=== PATIENT | male | born 1960 | race African-American/Black ===

== ENCOUNTER 2023-06-26 16:13 | Emergency (ER) | payer SELFPAY ==
[2023-06-26] MEDS ORDERED: Bacitracin 1 PK ONE ×2 (17:39→17:51)
== END 2023-06-26 17:50 | disposition home or self-care (01) ==
LOC: ERS 16:13
DX: L91.0 Hypertrophic scar (principal); F17.210 Nicotine dependence, cigarettes, uncomplicated
CPT/HCPCS: 99282

== ENCOUNTER 2024-11-16 11:04 | Emergency (ER) | payer OTHER ==
[~2024-11-16 11:04] MED LIST: Iopamidol-370 76% 500 ML MDV (1 ML CHARGE) ONE
[2024-11-16 11:56] LABS: #Basophils 0.05 10x3/uL (0.0-0.2); #Eosinophils 0.09 10x3/uL (0.0-0.7); #Monocytes 0.60 10x3/uL (0.11-0.59); #Neutrophils 3.47 10x3/uL (1.40-6.50); %Basophils 0.8 % (0.0-1.0); %Eosinophils 1.4 % (0.0-10.0); %Lymphocytes 33.1 % (21.0-51.0); %Monocytes 9.5 % (0.0-10.0); %Neutrophils 55.0 % (42.0-75.0); Hematocrit 50.3 % (42.0-52.0); Hemoglobin 16.0 g/dL (14.0-18.0); Mean Corpuscular Hemoglobin 29.9 pg (27.0-31.0); Mean Corpuscular Volume 94.0 fL (78.0-98.0); Platelet Count 213 10x3/uL (130-400); Red Blood Cell (RBC) Count 5.35 mill/uL (4.70-6.10); White Blood Cell (WBC) Count 6.31 10x3/uL (4.8-10.8)
[2024-11-16] MEDS ORDERED: Droperidol 5 MG/2 ML VIAL ONE (12:14)
[2024-11-16] MEDS ORDERED: Pantoprazole 40 MG VIAL ONE (12:14)
[2024-11-16 12:21] LABS: Anisocytosis MODERATE=16-30 cells HPF (0-5); Macrocytosis SLIGHT = 6-15 cells HPF (0-5); Ovalocytes SLIGHT = 2-5 cells HPF (0-1); Platelet Adequacy Comment Platelets Normal; Polychromasia SLIGHT = 2-3 cells HPF (0-2); Spherocytes SLIGHT = 1-5 cells HPF (None Seen)
[2024-11-16 13:07] LABS: Bacteria/HPF None Seen HPF (None Seen); CAUTI Indications for Culture Dysuria,urgency,freq; Glucose, Urine (Dipstick) Normal (Negative); Leukocyte Negative Leu/uL (Negative); Protein, Urine (Dipstick) 10 mg/dL (Neg-Trace); RBC/HPF 0-3 HPF (0-3); Specific Gravity, Urine 1.022 (1.002-1.036); WBC/HPF 0-3 HPF (0-3)
[2024-11-16 13:09] LABS: Urine Culture Reflex No No
[2024-11-16 14:09] LABS: INR-International Normal Ratio 1.0; PTT 38.6 sec (22.9-36.1); Prothrombin Time 13.6 sec (12.0-14.7)
[2024-11-16 14:19] LABS: ALT (SGPT) 20 U/L (Less than 45); AST (SGOT) 35 U/L (11-34); Albumin 4.4 g/dL (3.1-4.5); Alkaline Phosphatase 232 U/L (40-110); Anion Gap 16 mmol/L (10-20); BUN (Urea Nitrogen) 12 mg/dL (8.4-25.7); Bilirubin, Total 1.2 mg/dL (0.3-1.2); Calc. Creatinine Clearance 0 mL/min (70-130); Calcium 9.8 mg/dL (7.8-10.44); Carbon Dioxide 27 mmol/L (23-31); Chloride 102 mmol/L (98-107); Globulin 3.8 g/dL (2.4-3.5); Glucose 101 mg/dL (80-115); Lipase 15 U/L (8-78); Potassium 4.2 mmol/L (3.5-5.1); Sodium 141 mmol/L (136-145)
== END 2024-11-16 16:24 | disposition home or self-care (01) ==
LOC: ERS 11:04
DX: R11.2 Nausea with vomiting, unspecified (principal); R10.13 Epigastric pain; T81.321A Disruption or dehiscence of closure of internal operation (surgical) wound of abdominal wall muscle or fascia, initial encounter; F17.210 Nicotine dependence, cigarettes, uncomplicated
CPT/HCPCS: 36415; 74177; 80053; 81001; 83690; 84484; 85025; 85610; 85730; 86850; 86870; 86900; 86901; 86905; 86922; 96374; 96375; J1790; J2470; Q9967

== ENCOUNTER 2025-03-20 20:39 | Inpatient (IN) | payer OTHER ==
[2025-03-20 21:53] LABS: Bacteria/HPF None Seen HPF (None Seen); CAUTI Indications for Culture Pelvic or flank pain; Glucose, Urine (Dipstick) Normal (Negative); Leukocyte Negative Leu/uL (Negative); Protein, Urine (Dipstick) Negative (Neg-Trace); RBC/HPF None Seen HPF (0-3); Specific Gravity, Urine 1.021 (1.002-1.036); WBC/HPF None Seen HPF (0-3)
[2025-03-20] MEDS ORDERED: Ondansetron PF 4 MG/2 ML Vial ONE (22:00)
[2025-03-20 22:03] LABS: Urine Culture Reflex No No
[2025-03-20 22:38] LABS: #Basophils 0.05 10x3/uL (0.0-0.2); #Eosinophils 0.09 10x3/uL (0.0-0.7); #Monocytes 0.56 10x3/uL (0.11-0.59); #Neutrophils 3.91 10x3/uL (1.40-6.50); %Basophils 0.8 % (0.0-1.0); %Eosinophils 1.5 % (0.0-10.0); %Lymphocytes 25.3 % (21.0-51.0); %Monocytes 9.0 % (0.0-10.0); %Neutrophils 63.1 % (42.0-75.0); Hematocrit 24.3 % (42.0-52.0); Hemoglobin 7.8 g/dL (14.0-18.0); Mean Corpuscular Hemoglobin 29.9 pg (27.0-31.0); Mean Corpuscular Volume 93.1 fL (78.0-98.0); Platelet Count 434 10x3/uL (130-400); Red Blood Cell (RBC) Count 2.61 mill/uL (4.70-6.10); White Blood Cell (WBC) Count 6.20 10x3/uL (4.8-10.8)
[2025-03-20 22:52] LABS: ALT (SGPT) 13 U/L (Less than 45); AST (SGOT) 59 U/L (11-34); Albumin 3.7 g/dL (3.1-4.5); Alkaline Phosphatase 166 U/L (40-110); Anion Gap 13 mmol/L (10-20); BUN (Urea Nitrogen) 8 mg/dL (8.4-25.7); Bilirubin, Total 0.6 mg/dL (0.3-1.2); Calc. Creatinine Clearance 0 mL/min (70-130); Calcium 9.1 mg/dL (7.8-10.44); Carbon Dioxide 20 mmol/L (23-31); Chloride 106 mmol/L (98-107); Globulin 3.0 g/dL (2.4-3.5); Glucose 97 mg/dL (80-115); Lipase 15 U/L (8-78); Potassium 4.7 mmol/L (3.5-5.1); Sodium 134 mmol/L (136-145)
[2025-03-21 00:42] LABS: INR-International Normal Ratio 1.0; Prothrombin Time 13.8 sec (12.0-14.7)
[2025-03-21 00:43] LABS: PTT 32.1 sec (22.9-36.1)
[2025-03-21] MEDS ORDERED: Melatonin 3 MG TAB PO PRN (01:28)
[2025-03-21] MEDS ORDERED: Acetaminophen 325 MG TAB PO PRN (01:28)
[2025-03-21 03:32] LABS: #Basophils 0.05 10x3/uL (0.0-0.2); #Eosinophils 0.11 10x3/uL (0.0-0.7); #Monocytes 0.71 10x3/uL (0.11-0.59); #Neutrophils 3.54 10x3/uL (1.40-6.50); %Basophils 0.8 % (0.0-1.0); %Eosinophils 1.8 % (0.0-10.0); %Lymphocytes 26.0 % (21.0-51.0); %Monocytes 11.9 % (0.0-10.0); %Neutrophils 59.3 % (42.0-75.0); Hematocrit 24.3 % (42.0-52.0); Hemoglobin 7.6 g/dL (14.0-18.0); Mean Corpuscular Hemoglobin 29.8 pg (27.0-31.0); Mean Corpuscular Volume 95.3 fL (78.0-98.0); Platelet Count 415 10x3/uL (130-400); Red Blood Cell (RBC) Count 2.55 mill/uL (4.70-6.10); White Blood Cell (WBC) Count 5.97 10x3/uL (4.8-10.8)
[2025-03-21 03:49] LABS: ALT (SGPT) 13 U/L (Less than 45); AST (SGOT) 24 U/L (11-34); Albumin 3.4 g/dL (3.1-4.5); Alkaline Phosphatase 154 U/L (40-110); Anion Gap 8 mmol/L (10-20); BUN (Urea Nitrogen) 9 mg/dL (8.4-25.7); Bilirubin, Total 0.6 mg/dL (0.3-1.2); Calc. Creatinine Clearance 0 mL/min (70-130); Calcium 8.9 mg/dL (7.8-10.44); Carbon Dioxide 21 mmol/L (23-31); Chloride 108 mmol/L (98-107); Globulin 2.7 g/dL (2.4-3.5); Glucose 92 mg/dL (80-115); Potassium 4.5 mmol/L (3.5-5.1); Sodium 132 mmol/L (136-145)
[2025-03-21] MEDS: Pantoprazole 40 MG VIAL IVP SCH ×2 (04:43→09:04)
[2025-03-21 05:23] VITALS: BMI 17.8
[2025-03-21] MEDS: Metoclopramide HCl 10 MG (2 mL) VIAL IVP SCH (05:44)
[2025-03-21 11:31] VITALS: BMI 17.8
[2025-03-21] MEDS ORDERED: Ketamine In 0.9 % NaCl 50 MG/5 ML SYRINGE ONE (12:07)
[2025-03-21] MEDS ORDERED: PROPOFOL 20 ML ONE (12:07)
[2025-03-21] MEDS ORDERED: Lidocaine 1% PF 5 ML VIAL ONE (12:18)
[2025-03-21 15:20] LABS: Hematocrit 24.7 % (42.0-52.0); Hemoglobin 7.8 g/dL (14.0-18.0)
[2025-03-21] MEDS: Sulfameth/Trimethoprim DS 800-160mg TAB PO SCH (19:50)
[2025-03-22 05:09] LABS: #Basophils 0.04 10x3/uL (0.0-0.2); #Eosinophils 0.16 10x3/uL (0.0-0.7); #Monocytes 0.94 10x3/uL (0.11-0.59); #Neutrophils 2.72 10x3/uL (1.40-6.50); %Basophils 0.7 % (0.0-1.0); %Eosinophils 2.8 % (0.0-10.0); %Lymphocytes 32.1 % (21.0-51.0); %Monocytes 16.5 % (0.0-10.0); %Neutrophils 47.7 % (42.0-75.0); Hematocrit 22.3 % (42.0-52.0); Hemoglobin 7.1 g/dL (14.0-18.0); Mean Corpuscular Hemoglobin 30.1 pg (27.0-31.0); Mean Corpuscular Volume 94.5 fL (78.0-98.0); Platelet Count 409 10x3/uL (130-400); Red Blood Cell (RBC) Count 2.36 mill/uL (4.70-6.10); White Blood Cell (WBC) Count 5.70 10x3/uL (4.8-10.8)
[2025-03-22 05:24] LABS: ALT (SGPT) 9 U/L (Less than 45); AST (SGOT) 19 U/L (11-34); Albumin 3.1 g/dL (3.1-4.5); Alkaline Phosphatase 149 U/L (40-110); Anion Gap 11 mmol/L (10-20); BUN (Urea Nitrogen) 9 mg/dL (8.4-25.7); Bilirubin, Total 0.3 mg/dL (0.3-1.2); Calc. Creatinine Clearance 54 mL/min (70-130); Calcium 8.7 mg/dL (7.8-10.44); Carbon Dioxide 25 mmol/L (23-31); Chloride 105 mmol/L (98-107); Globulin 2.6 g/dL (2.4-3.5); Glucose 90 mg/dL (80-115); Potassium 4.7 mmol/L (3.5-5.1); Sodium 136 mmol/L (136-145)
[2025-03-22 11:34] VITALS: BP 102/59; TEMP 97.7
== END 2025-03-22 13:10 | disposition home or self-care (01) | DRG 377 ==
LOC: ERS 20:39 → SURG B 03-21 01:28
PROVIDERS: ADMIT Emergency Medicine; ATTEND Emergency Medicine
PROC: 0DB68ZX Excision of Stomach, Via Natural or Artificial Opening Endoscopic, Diagnostic (ICD-10-PCS; principal; 2025-03-21)
DX: K26.0 Acute duodenal ulcer with hemorrhage (principal); E43 Unspecified severe protein-calorie malnutrition; E87.1 Hypo-osmolality and hyponatremia; Z68.1 Body mass index [BMI] 19.9 or less, adult; D64.9 Anemia, unspecified; R63.4 Abnormal weight loss; R74.01 Elevation of levels of liver transaminase levels; E78.5 Hyperlipidemia, unspecified; F17.210 Nicotine dependence, cigarettes, uncomplicated; Z98.890 Other specified postprocedural states; Z79.899 Other long term (current) drug therapy
CPT/HCPCS: 36415; 74177; 80053; 81001; 83605; 83690; 85025; 85610; 85730; 86850; 86900; 86901; 86922; 88305; 88342; 93005; 96374; 96375; 96376; 97139; J2272; J2405; J2470; J2704; J2765; J3490; J7120; Q0162; Q9967